=== PATIENT | female | born 1970 | race African-American/Black ===

== ENCOUNTER 2016-08-28 11:44 | Inpatient (IN) | payer OTHER ==
[2016-08-28 12:27] VITALS: BMI 20.5
--- NOTE | 2016-08-28 13:02 | HP ---
Admission ROS [facility] Chief Complaint: I was at detox at [facility] and now ready for rehab. Allergies/Adverse Reactions: Allergies Allergy/AdvReac Type Severity Reaction Status Date / Time No Known Allergies Allergy Verified 08/28/16 12:51 History of Present Illness: pt is a 46yr old female with a history of heroin dependence who was detoxed at [facility] a week ago is ready for rehab for treatment. Exam Limitations: No Limitations - Ebola screening Have you traveled outside of the country in the last 21 days: No Have you had contact with anyone from an Ebola affected area: No Have you been sick,other than usual withdrawal symptoms: No Do you have a fever: No - Review of Systems Constitutional: Chills, Diaphoresis, Loss of Appetite, Changes in sleep, Unintentional Wgt. Loss EENT: reports: Tearing, Nose Congestion Respiratory: reports: No Symptoms reported Cardiac: reports: No Symptoms Reported GI: reports: Poor Appetite, Poor Fluid Intake : reports: No Symptoms Reported Musculoskeletal: reports: Back Pain Integumentary: reports: No Symptoms Reported Neuro: reports: No Symptoms reported Endocrine: reports: No Symptoms Reported Hematology: reports: No Symptoms Reported Psychiatric: reports: Judgement Intact, Mood/Affect Appropiate, Orientated x3, Agitated, Anxious Other Systems: Reviewed and Negative Patient History - Patient Medical History Hx Anemia: No Hx Asthma: No Hx Chronic Obstructive Pulmonary Disease (COPD): No Hx Cancer: No Hx Cardiac Disorders: No Hx Congestive Heart Failure: No Hx Hypertension: No Hx Hypercholesterolemia: No Hx Pacemaker: No HX Cerebrovascular Accident: No Hx Seizures: No Hx Dementia: No Hx Diabetes: No Hx Gastrointestinal Disorders: No Hx Liver Disease: No Hx Genitourinary Disorders: No Hx Sexually Transmitted Disorders: No Hx Renal Disease (ESRD): No Hx Thyroid Disease: No Hx Human Immunodeficiency Virus (HIV): No (negative) Hx Hepatitis C: No (negative) Hx Depression: No Hx Suicide Attempt: No (denies) Hx Bipolar Disorder: No Hx Schizophrenia: No - Patient Surgical History Past Surgical History: No - PPD History Previous Implant?: Yes Documented Results: Negative w/o proof PPD to be Administered?: Yes - Reproductive History Patient is a Female of Child Bearing Age (11 -55 yrs old): Yes Last Menstrual Period: 08/22/16 Patient : No - Smoking Cessation Smoking history: Current every day smoker Have you smoked in the past 12 months: Yes Aproximately how many cigarettes per day: 7 Hx Chewing Tobacco Use: No Initiated information on smoking cessation: Yes 'Breaking Loose' booklet given: 08/28/16 - Substance & Tx. History Hx Alcohol Use: No Hx Substance Use: Yes Substance Use Type: Heroin Hx Substance Use Treatment: Yes - Substances Abused Heroin Route: Inhalation Frequency: Daily Amount used: 2 bundle Age of first use: 16 Date of Last Use: 08/21/16 Family Disease History - Family Disease History Family Disease History: Diabetes: Mother Admission Physical Exam [facility] - Vital Signs Vital Signs: Vital Signs - 24 hr 08/28/16 12:24 Temperature 99.3 F Pulse Rate 68 Respiratory 20 Rate Blood Pressure 129/80 - Physical General Appearance: Yes: Appropriately Dressed, Mild Distress, Thin, Tremorous, Irritable, Sweating, Anxious HEENTM: Yes: Hearing grossly Normal, Normal Voice Respiratory: Yes: Lungs Clear, Normal Breath Sounds, No Respiratory Distress Neck: Yes: No masses,lesions,Nodules Breast: Yes: Within Normal Limits Cardiology: Yes: Regular Rhythm, Regular Rate, S1, S2 Abdominal: Yes: Normal Bowel Sounds, Non Tender, Soft Genitourinary: Yes: Within Normal Limits Back: Yes: Normal Inspection Musculoskeletal: Yes: full range of Motion Extremities: Yes: Normal Capillary Refill Neurological: Yes: Fully Oriented, Alert, Normal Response Integumentary: Yes: Normal Color Lymphatic: Yes: Within Normal Limits - Diagnostic (1) Heroin abuse Current Visit: No Status: Chronic (2) Nicotine dependence Current Visit: Yes Status: Chronic Qualifiers: Nicotine product type: cigarettes Substance use status: uncomplicated Qualified Code(s): F17.210 - Nicotine dependence, cigarettes, uncomplicated Cleared for Admission [facility] - Detox or Rehab [facility] Level of Care: Medically Managed Claeared for Rehab Admission: Yes [facility] Breath Alcohol Content Breath Alcohol Content: 0 Urine Pregancy Test - Result Urine Test Results: Negative- NO Line Present Urine Drug Screen - Results Drug Screen Negative: No Urine Drug Screen Results: MTD-Methadone
[2016-08-28] MEDS ORDERED: MAGNESIUM HYDROX 2400MG/30ML ORAL SUSPENSION 30 ML CUP PO PRN (13:17)
[2016-08-28] MEDS ORDERED: MAG HYDROX/AL HYDROX/SIMETH 30 ML UNIT-DOSE CUP PO PRN (13:17)
[2016-08-28] MEDS ORDERED: LOPERAMIDE HCL 2 MG CAPSULE PO PRN (13:17)
[2016-08-28] MEDS ORDERED: hydrOXYzine PAMOATE 50 MG CAPSULE (FP) PO PRN (13:17)
[2016-08-28] MEDS ORDERED: MENTHOL/PHENOL 1 EACH UD MM PRN (13:17)
[2016-08-28] MEDS ORDERED: ACETAMINOPHEN 325 MG TABLET (FP) PO PRN (13:17)
[2016-08-28] MEDS ORDERED: P-EPHED 60MG/TRIPROLIDI 2.5MG TABLET PO PRN (13:17)
[2016-08-28] MEDS ORDERED: MAGNESIUM CITRATE 300 ML BOTTLE PO PRN (13:17)
--- NOTE | 2016-08-28 14:52 | HP ---
Psychiatrist Admission - Data Date of interview: 08/28/16 Admission source: [facility] Identifying data: This is the first admission to [address] [place] [address] for this 46 years old AA female Medical History: unremarkable Psychiatric History: Patient denies previous psychiatric history but reports sleeping difficulties on and off ,used to medicate herself with drugs to improve sleep condition. Physical/Sexual Abuse/Trauma History: not wiling to discuss at present. Vital Signs: Vital Signs - 24 hr 08/28/16 12:24 Temperature 99.3 F Pulse Rate 68 Respiratory 20 Rate Blood Pressure 129/80 Allergies/Adverse Reactions: Allergies Allergy/AdvReac Type Severity Reaction Status Date / Time No Known Allergies Allergy Verified 08/28/16 12:51 Date of last physical exam: 08/28/16 Concur with the findings of this exam: Yes - Substance Abuse/Tx History Hx Alcohol Use: Yes Hx Substance Use: Yes (reports using heroin since 16 years old,2 bundle daily) Substance Use Type: Heroin Hx Substance Use Treatment: Yes - Admission Criteria Previous failed treatment: Yes Poor recovery environment: Yes Comorbidities: Yes Lacks judgement: Yes Mental Status Exam - Mental Status Exam Alert and Oriented to: Time, Place, Person Cognitive Function: Grossly Intact Patient Appearance: Unkempt Mood: Sad Affect: Mood Congruent Patient Behavior: Cooperative Speech Pattern: Clear Voice Loudness: Normal Thought Process: Goal Oriented Thought Disorder: Not Present Hallucinations: Denies Suicidal Ideation: Denies Homicidal Ideation: Denies Insight/Judgement: Fair Sleep: Fair Appetite: Fair Muscle strength/Tone: Normal Gait/Station: Normal Psychiatric Findings - Problem List ([place] 1, 2,3) (1) Nicotine dependence Current Visit: Yes Status: Chronic Qualifiers: Nicotine product type: cigarettes Substance use status: uncomplicated Qualified Code(s): F17.210 - Nicotine dependence, cigarettes, uncomplicated (2) Heroin abuse Current Visit: Yes Status: Chronic - Initial Treatment Plan Initial Treatment Plan: TRazodone 50 mg po hs.Will monitor progress.
[2016-08-28] MEDS: CYCLOBENZAPRINE HCL 10 MG TABLET (FP) PO PRN (15:38)
[2016-08-28] MEDS ORDERED: TUBERCULIN PPD 5 TU/0.1ML VIAL ID ONE (16:15)
[2016-08-28 17:33] LABS: MCHC 32.1 g/dl (32.0-36.0); MEAN CELL VOLUME 87.2 fl (80-96); MEAN PLT VOLUME 10.3 fl (7.5-11.1); PLATELET COUNT 334 K/MM3 (134-434); RDW 16.4 % (11.6-15.6)
[2016-08-28 17:50] LABS: ALBUMIN 3.2 g/dl (3.4-5.0); ANION GAP 8 (8-16); CALCIUM 8.7 mg/dL (8.5-10.1); CO2 29 mmol/L (21-32); GLUCOSE,RANDOM 91 mg/dL (74-106); SGOT/AST 12 U/L (15-37); SGPT/ALT 19 U/L (12-78)
[2016-08-28 17:52] LABS: ALK PHOS 61 U/L (45-117); BILIRUBIN,TOTAL 0.2 mg/dL (0.2-1.0); CREATININE 0.7 mg/dL (0.55-1.02); TOT PROT 6.5 g/dl (6.4-8.2)
[2016-08-28] MEDS: RANITIDINE HCL 150 MG TABLET (FP) PO SCH (21:55)
[2016-08-28] MEDS: THIAMINE HCL 100 MG TABLET (FP) PO SCH (21:55)
[2016-08-28] MEDS: NAPROXEN 500 MG TABLET (FP) PO SCH (21:55)
[2016-08-28] MEDS: traZODone HCL 50 MG TABLET (FP) PO SCH (21:55)
[2016-08-28 23:36] LABS: URINE APPEARANCE CLEAR; URINE BILIRUBIN NEGATIVE (NEGATIVE); URINE BLOOD NEGATIVE (NEGATIVE); URINE COLOR YELLOW; URINE GLUCOSE (UA) NEGATIVE (NEGATIVE); URINE KETONE NEGATIVE (NEGATIVE); URINE LEUK ESTERASE NEGATIVE (NEGATIVE); URINE NITRITE NEGATIVE (NEGATIVE); URINE PROTEIN NEGATIVE (NEGATIVE); URINE UROBILINOGEN NEGATIVE E.U./dl (0.2-1.0)
[2016-08-29] MEDS: cloNIDine HCL 0.1 MG TABLET PO SCH (10:26)
[2016-08-29] MEDS: NAPROXEN 500 MG TABLET (FP) PO SCH ×2 (10:26→21:53)
[2016-08-29] MEDS: NICOTINE 14 MG/24 HOURS TOPICAL PATCH TD SCH (10:27)
[2016-08-29] MEDS: PRENATAL VITAMINS W/ FOLIC ACID TABLET (FP) PO SCH (10:27)
[2016-08-29] MEDS: RANITIDINE HCL 150 MG TABLET (FP) PO SCH ×2 (10:27→21:53)
[2016-08-29 11:53] LABS: HIV 1 & 2 AB NEGATIVE; HIV 1 AGp24 NEGATIVE
[2016-08-29] MEDS: CYCLOBENZAPRINE HCL 10 MG TABLET (FP) PO PRN (13:10)
[2016-08-29] MEDS: THIAMINE HCL 100 MG TABLET (FP) PO SCH (21:53)
[2016-08-29] MEDS: traZODone HCL 50 MG TABLET (FP) PO SCH (21:53)
[2016-08-30] MEDS: guaiFENesin/D-METHORPHAN HB 10 ML UNIT-DOSE CUPS PO PRN (08:57)
[2016-08-30] MEDS: cloNIDine HCL 0.1 MG TABLET PO SCH (10:54)
[2016-08-30] MEDS: NICOTINE 14 MG/24 HOURS TOPICAL PATCH TD SCH (10:54)
[2016-08-30] MEDS: PRENATAL VITAMINS W/ FOLIC ACID TABLET (FP) PO SCH (10:55)
[2016-08-30] MEDS: NAPROXEN 500 MG TABLET (FP) PO SCH ×2 (10:55→21:46)
[2016-08-30] MEDS: RANITIDINE HCL 150 MG TABLET (FP) PO SCH ×2 (10:55→21:47)
[2016-08-30] MEDS: traZODone HCL 50 MG TABLET (FP) PO SCH (21:46)
[2016-08-30] MEDS: THIAMINE HCL 100 MG TABLET (FP) PO SCH (21:47)
[2016-08-31] MEDS: guaiFENesin/D-METHORPHAN HB 10 ML UNIT-DOSE CUPS PO PRN (09:04)
[2016-08-31] MEDS: RANITIDINE HCL 150 MG TABLET (FP) PO SCH ×2 (09:05→21:43)
[2016-08-31] MEDS: cloNIDine HCL 0.1 MG TABLET PO SCH (09:05)
[2016-08-31] MEDS: NAPROXEN 500 MG TABLET (FP) PO SCH ×2 (09:05→21:43)
[2016-08-31] MEDS: PRENATAL VITAMINS W/ FOLIC ACID TABLET (FP) PO SCH (09:05)
[2016-08-31] MEDS: NICOTINE 14 MG/24 HOURS TOPICAL PATCH TD SCH (09:06)
[2016-08-31] MEDS: traZODone HCL 50 MG TABLET (FP) PO SCH (21:43)
[2016-08-31] MEDS: THIAMINE HCL 100 MG TABLET (FP) PO SCH (21:43)
[2016-09-01] MEDS: RANITIDINE HCL 150 MG TABLET (FP) PO SCH ×2 (09:21→21:51)
[2016-09-01] MEDS: cloNIDine HCL 0.1 MG TABLET PO SCH (09:21)
[2016-09-01] MEDS: PRENATAL VITAMINS W/ FOLIC ACID TABLET (FP) PO SCH (09:21)
[2016-09-01] MEDS: NAPROXEN 500 MG TABLET (FP) PO SCH ×2 (09:21→21:51)
[2016-09-01] MEDS: NICOTINE 14 MG/24 HOURS TOPICAL PATCH TD SCH (09:22)
--- NOTE | 2016-09-01 16:53 | PN ---
[id number] [id number] Date of Session: 09/01/16 Chief Complaint:: "Gerard still having sleeping difficulties." HPI: Patient addressed Opioid dependence comorbid with Substance induced mood disorder. ROS: unremarkable Current Medications: Active Medications Generic Name Dose Route Start Last Admin Trade Name Freq PRN Reason Stop Dose Admin Acetaminophen 650 mg 08/28/16 13:17 Tylenol - PO Q4H PRN PAIN Al Hydroxide/Mg Hydroxide 30 ml 08/28/16 13:17 Mylanta Oral Suspension - PO Q6H PRN DYSPEPSIA Clonidine 0.1 mg 08/29/16 10:00 09/01/16 09:21 Catapres - PO 0.1 mg DAILY RAPHAEL Administration Cyclobenzaprine HCl 10 mg 08/28/16 13:19 08/29/16 13:10 Flexeril - PO 10 mg TID PRN Administration MUSCLE SPASMS Diphenhydramine HCl 50 mg 08/28/16 13:17 Benadryl - PO HSMR1 PRN INSOMNIA Eucalyptus/Menthol/Phenol/Sorbitol 1 each 08/28/16 13:17 Cepastat Lozenge - MM Q4H PRN SORE THROAT Guaifenesin 10 ml 08/28/16 13:17 08/31/16 09:04 Robitussin Dm - PO 10 ml Q6H PRN Administration COUGH Hydroxyzine Pamoate 50 mg 08/28/16 13:17 09/01/16 02:23 Vistaril - PO 50 mg Q4H PRN Administration AGITATION Loperamide HCl 4 mg 08/28/16 13:17 Imodium - PO Q6H PRN DIARRHEA Magnesium Citrate 300 ml 08/28/16 13:17 Citroma - PO Q48H PRN CONSTIPATION Magnesium Hydroxide 30 ml 08/28/16 13:17 Milk Of Magnesia - PO DAILY PRN CONSTIPATION Naproxen 500 mg 08/28/16 22:00 09/01/16 09:21 Naprosyn - PO 500 mg BID RAPHAEL Administration Nicotine 14 mg 08/29/16 10:00 09/01/16 09:22 Nicoderm Patch - TD Not Given DAILY RAPHAEL Nicotine Polacrilex 4 mg 08/28/16 13:17 Nicorette Gum - BC Q2H PRN NICOTINE REPLACEMENT RX Multivit/Folic Acid/Iron 1 tab 08/29/16 10:00 09/01/16 09:21 Vitamins (Sjr) - PO 1 tab DAILY RAPHAEL Administration Pseudoephedrine/Triprolidine 1 combo 08/28/16 13:17 Actifed - PO TID PRN NASAL CONGESTION Ranitidine HCl 150 mg 08/28/16 22:00 09/01/16 09:21 Zantac - PO 150 mg BID RAPHAEL Administration Thiamine HCl 100 mg 08/28/16 22:00 08/31/16 21:43 Vitamin B1 - PO Not Given HS RAPHAEL Trazodone HCl 100 mg 09/01/16 22:00 Desyrel - PO HS RAPHAEL Current Side Effect: No Lab tests ordered: No Lab tests reviewed: Yes Provider note:: Patient was evaluated today.Chart has been revuewed,medications, treatment plan has been discussed with the patinet.Properties of Trazodone has been discussed as well including side effects,benefits adn dose adjustment.Trazodone 50 mg po hs will be adjusted to 100 mg po hs. Psychotherapy has been provided focusing on coping skills utilization, relaxation techniques has been discussed.Emotional support provided. Total face to face time:: 30 Mental Status Exam - Mental Status Exam Alert and Oriented to: Time, Place, Person Cognitive Function: Grossly Intact Patient Appearance: Well Groomed Mood: Anxious Affect: Labile Patient Behavior: Cooperative Speech Pattern: Clear Voice Loudness: Normal Thought Process: Goal Oriented Thought Disorder: Not Present Hallucinations: Denies Suicidal Ideation: Denies Homicidal Ideation: Denies Insight/Judgement: Fair Sleep: Difficulty falling asleep Appetite: Good Muscle strength/Tone: Normal Gait/Station: Normal Psychiatric Treatment Plan - Problem List (1) Nicotine dependence Current Visit: Yes Qualifiers: Nicotine product type: cigarettes Substance use status: uncomplicated Qualified Code(s): F17.210 - Nicotine dependence, cigarettes, uncomplicated (2) Substance-induced sleep disorder Current Visit: Yes (3) Opioid dependence Current Visit: Yes
[2016-09-01] MEDS: traZODone HCL 100 MG TABLET (FP) PO SCH (21:51)
[2016-09-01] MEDS: diphenhydrAMINE HCL 50 MG CAPSULE PO PRN (21:52)
[2016-09-01] MEDS: THIAMINE HCL 100 MG TABLET (FP) PO SCH (21:53)
[2016-09-02] MEDS: RANITIDINE HCL 150 MG TABLET (FP) PO SCH ×2 (10:07→21:18)
[2016-09-02] MEDS: cloNIDine HCL 0.1 MG TABLET PO SCH (10:07)
[2016-09-02] MEDS: NAPROXEN 500 MG TABLET (FP) PO SCH ×2 (10:07→21:18)
[2016-09-02] MEDS: PRENATAL VITAMINS W/ FOLIC ACID TABLET (FP) PO SCH (10:07)
[2016-09-02] MEDS: NICOTINE 14 MG/24 HOURS TOPICAL PATCH TD SCH (10:08)
[2016-09-02] MEDS: guaiFENesin/D-METHORPHAN HB 10 ML UNIT-DOSE CUPS PO PRN (11:43)
[2016-09-02] MEDS: traZODone HCL 100 MG TABLET (FP) PO SCH (21:17)
[2016-09-02] MEDS: diphenhydrAMINE HCL 50 MG CAPSULE PO PRN (21:17)
[2016-09-02] MEDS: THIAMINE HCL 100 MG TABLET (FP) PO SCH (21:18)
[2016-09-03] MEDS: NICOTINE 14 MG/24 HOURS TOPICAL PATCH TD SCH (10:31)
[2016-09-03] MEDS: NAPROXEN 500 MG TABLET (FP) PO SCH ×2 (10:31→21:23)
[2016-09-03] MEDS: PRENATAL VITAMINS W/ FOLIC ACID TABLET (FP) PO SCH (10:31)
[2016-09-03] MEDS: cloNIDine HCL 0.1 MG TABLET PO SCH (10:31)
[2016-09-03] MEDS: RANITIDINE HCL 150 MG TABLET (FP) PO SCH ×2 (10:32→21:24)
[2016-09-03] MEDS: diphenhydrAMINE HCL 50 MG CAPSULE PO PRN (21:23)
[2016-09-03] MEDS: THIAMINE HCL 100 MG TABLET (FP) PO SCH (21:23)
[2016-09-03] MEDS: traZODone HCL 100 MG TABLET (FP) PO SCH (21:23)
[2016-09-04] MEDS: NAPROXEN 500 MG TABLET (FP) PO SCH ×2 (09:58→21:13)
[2016-09-04] MEDS: RANITIDINE HCL 150 MG TABLET (FP) PO SCH ×2 (09:58→21:14)
[2016-09-04] MEDS: cloNIDine HCL 0.1 MG TABLET PO SCH (09:58)
[2016-09-04] MEDS: PRENATAL VITAMINS W/ FOLIC ACID TABLET (FP) PO SCH (09:59)
[2016-09-04] MEDS: NICOTINE 14 MG/24 HOURS TOPICAL PATCH TD SCH (09:59)
--- NOTE | 2016-09-04 16:06 | PN ---
Psychiatric Progress Note Vital Signs: Vital Signs Period Temp Pulse Resp BP Sys/Nugent Pulse Ox Last 24 Hr 98.7 F 63-63 16-18 111-141/74-92 Date of Session: 09/04/16 Chief Complaint:: Follow up visit HPI: Asked to see this patient for complaint of insomnia.Rehabilitation treatment for heroin dependence :in progress.Hospital course is uneventful except for refractory insomnia. ROS: Unremarkable. Current Medications: Active Medications Generic Name Dose Route Start Last Admin Trade Name Freq PRN Reason Stop Dose Admin Acetaminophen 650 mg 08/28/16 13:17 Tylenol - PO Q4H PRN PAIN Al Hydroxide/Mg Hydroxide 30 ml 08/28/16 13:17 Mylanta Oral Suspension - PO Q6H PRN DYSPEPSIA Clonidine 0.1 mg 08/29/16 10:00 09/04/16 09:58 Catapres - PO 0.1 mg DAILY RAPHAEL Administration Cyclobenzaprine HCl 10 mg 08/28/16 13:19 08/29/16 13:10 Flexeril - PO 10 mg TID PRN Administration MUSCLE SPASMS Diphenhydramine HCl 50 mg 08/28/16 13:17 09/03/16 21:23 Benadryl - PO 50 mg HSMR1 PRN Administration INSOMNIA Eucalyptus/Menthol/Phenol/Sorbitol 1 each 08/28/16 13:17 Cepastat Lozenge - MM Q4H PRN SORE THROAT Guaifenesin 10 ml 08/28/16 13:17 09/02/16 11:43 Robitussin Dm - PO 10 ml Q6H PRN Administration COUGH Hydroxyzine Pamoate 50 mg 08/28/16 13:17 09/01/16 02:23 Vistaril - PO 50 mg Q4H PRN Administration AGITATION Loperamide HCl 4 mg 08/28/16 13:17 Imodium - PO Q6H PRN DIARRHEA Magnesium Citrate 300 ml 08/28/16 13:17 Citroma - PO Q48H PRN CONSTIPATION Magnesium Hydroxide 30 ml 08/28/16 13:17 Milk Of Magnesia - PO DAILY PRN CONSTIPATION Naproxen 500 mg 08/28/16 22:00 09/04/16 09:58 Naprosyn - PO 500 mg BID RAPHAEL Administration Nicotine 14 mg 08/29/16 10:00 12/26/16 09:59 Nicoderm Patch - TD Not Given DAILY RAPHAEL Nicotine Polacrilex 4 mg 08/28/16 13:17 Nicorette Gum - BC Q2H PRN NICOTINE REPLACEMENT RX Multivit/Folic Acid/Iron 1 tab 08/29/16 10:00 09/04/16 09:59 Vitamins (Sjr) - PO 1 tab DAILY RAPHAEL Administration Pseudoephedrine/Triprolidine 1 combo 08/28/16 13:17 Actifed - PO TID PRN NASAL CONGESTION Quetiapine Fumarate 50 mg 09/04/16 22:00 Seroquel - PO HS RAPHAEL Ranitidine HCl 150 mg 08/28/16 22:00 09/04/16 09:58 Zantac - PO 150 mg BID RAPHAEL Administration Thiamine HCl 100 mg 08/28/16 22:00 09/03/16 21:23 Vitamin B1 - PO Not Given HS RAPHAEL Trazodone HCl 100 mg 09/01/16 22:00 09/03/16 21:23 Desyrel - PO 100 mg HS RAPHAEL Administration Medication(s) Change(s): Patient reports that she " did well " ,in the past,on seroquel.Ms Boateng insists on having that medication added to this regimen.Seroquel 50 mg po hs.Ordered.Side effects/benefits of seroquel discussed with patient.She agrees with this plan. Current Side Effect: No Lab tests ordered: No Lab tests reviewed: Yes Provider note:: Met with patient.Complaint validated.Beneficial effects of sleep hygiene are discussed with patient.She requested seroquel.Patient is made aware of side effects/benefits.Unremarkable mental status. Total face to face time:: 30 Mental Status Exam - Mental Status Exam Alert and Oriented to: Time, Place, Person Cognitive Function: Good Patient Appearance: Well Groomed Mood: Nervous, Anxious, Hopeful Affect: Normal Range Patient Behavior: Fatigued, Appropriate, Cooperative Speech Pattern: Clear Voice Loudness: Normal Thought Process: Goal Oriented Thought Disorder: Not Present Hallucinations: Denies Suicidal Ideation: Denies Homicidal Ideation: Denies Insight/Judgement: Fair Sleep: Poorly, Difficulty falling asleep Appetite: Good Muscle strength/Tone: Normal Gait/Station: Normal Psychiatric Treatment Plan - Problem List (1) Nicotine dependence Current Visit: Yes Qualifiers: Nicotine product type: cigarettes Substance use status: uncomplicated Qualified Code(s): F17.210 - Nicotine dependence, cigarettes, uncomplicated (2) Insomnia Current Visit: Yes Qualifiers: Insomnia type: unspecified Qualified Code(s): G47.00 - Insomnia, unspecified (3) Heroin abuse Current Visit: Yes
[2016-09-04] MEDS: QUEtiapine FUMARATE 50 MG TABLET PO SCH (21:13)
[2016-09-04] MEDS: traZODone HCL 100 MG TABLET (FP) PO SCH (21:13)
[2016-09-04] MEDS: THIAMINE HCL 100 MG TABLET (FP) PO SCH (21:14)
[2016-09-05] MEDS: cloNIDine HCL 0.1 MG TABLET PO SCH (10:43)
[2016-09-05] MEDS: NICOTINE 14 MG/24 HOURS TOPICAL PATCH TD SCH (10:43)
[2016-09-05] MEDS: PRENATAL VITAMINS W/ FOLIC ACID TABLET (FP) PO SCH (10:43)
[2016-09-05] MEDS: RANITIDINE HCL 150 MG TABLET (FP) PO SCH ×2 (10:43→21:35)
[2016-09-05] MEDS: NAPROXEN 500 MG TABLET (FP) PO SCH ×2 (10:43→21:35)
[2016-09-05] MEDS: traZODone HCL 100 MG TABLET (FP) PO SCH (21:34)
[2016-09-05] MEDS: QUEtiapine FUMARATE 50 MG TABLET PO SCH (21:34)
[2016-09-05] MEDS: THIAMINE HCL 100 MG TABLET (FP) PO SCH (21:35)
[2016-09-05] MEDS: diphenhydrAMINE HCL 50 MG CAPSULE PO PRN (23:51)
[2016-09-06] MEDS: cloNIDine HCL 0.1 MG TABLET PO SCH (10:19)
[2016-09-06] MEDS: NAPROXEN 500 MG TABLET (FP) PO SCH ×2 (10:19→21:15)
[2016-09-06] MEDS: PRENATAL VITAMINS W/ FOLIC ACID TABLET (FP) PO SCH (10:20)
[2016-09-06] MEDS: RANITIDINE HCL 150 MG TABLET (FP) PO SCH ×2 (10:20→21:15)
[2016-09-06] MEDS: NICOTINE 14 MG/24 HOURS TOPICAL PATCH TD SCH (10:20)
[2016-09-06] MEDS: THIAMINE HCL 100 MG TABLET (FP) PO SCH (21:14)
[2016-09-06] MEDS: diphenhydrAMINE HCL 50 MG CAPSULE PO PRN (21:15)
[2016-09-06] MEDS: QUEtiapine FUMARATE 50 MG TABLET PO SCH (21:15)
[2016-09-06] MEDS: traZODone HCL 100 MG TABLET (FP) PO SCH (21:15)
[2016-09-07] MEDS: NAPROXEN 500 MG TABLET (FP) PO SCH ×2 (10:03→22:09)
[2016-09-07] MEDS: RANITIDINE HCL 150 MG TABLET (FP) PO SCH ×2 (10:03→22:09)
[2016-09-07] MEDS: NICOTINE 14 MG/24 HOURS TOPICAL PATCH TD SCH (10:03)
[2016-09-07] MEDS: PRENATAL VITAMINS W/ FOLIC ACID TABLET (FP) PO SCH (10:03)
[2016-09-07] MEDS: cloNIDine HCL 0.1 MG TABLET PO SCH (10:03)
[2016-09-07] MEDS: QUEtiapine FUMARATE 50 MG TABLET PO SCH (21:21)
[2016-09-07] MEDS: diphenhydrAMINE HCL 50 MG CAPSULE PO PRN (21:21)
[2016-09-07] MEDS: NICOTINE POLACRILEX 4 MG GUM BC PRN (21:21)
[2016-09-07] MEDS: traZODone HCL 100 MG TABLET (FP) PO SCH (21:21)
[2016-09-07] MEDS: THIAMINE HCL 100 MG TABLET (FP) PO SCH (22:09)
[2016-09-08] MEDS: RANITIDINE HCL 150 MG TABLET (FP) PO SCH ×2 (10:31→21:28)
[2016-09-08] MEDS: PRENATAL VITAMINS W/ FOLIC ACID TABLET (FP) PO SCH (10:31)
[2016-09-08] MEDS: NAPROXEN 500 MG TABLET (FP) PO SCH ×2 (10:31→21:28)
[2016-09-08] MEDS: cloNIDine HCL 0.1 MG TABLET PO SCH (10:31)
[2016-09-08] MEDS: NICOTINE POLACRILEX 4 MG GUM BC PRN (10:32)
[2016-09-08] MEDS: NICOTINE 14 MG/24 HOURS TOPICAL PATCH TD SCH (10:32)
[2016-09-08] MEDS: diphenhydrAMINE HCL 50 MG CAPSULE PO PRN (21:27)
[2016-09-08] MEDS: THIAMINE HCL 100 MG TABLET (FP) PO SCH (21:27)
[2016-09-08] MEDS: traZODone HCL 100 MG TABLET (FP) PO SCH (21:27)
[2016-09-08] MEDS: QUEtiapine FUMARATE 50 MG TABLET PO SCH (21:28)
[2016-09-09] MEDS: PRENATAL VITAMINS W/ FOLIC ACID TABLET (FP) PO SCH (09:51)
[2016-09-09] MEDS: NAPROXEN 500 MG TABLET (FP) PO SCH ×2 (09:51→21:17)
[2016-09-09] MEDS: NICOTINE 14 MG/24 HOURS TOPICAL PATCH TD SCH (09:51)
[2016-09-09] MEDS: cloNIDine HCL 0.1 MG TABLET PO SCH (09:51)
[2016-09-09] MEDS: RANITIDINE HCL 150 MG TABLET (FP) PO SCH ×2 (09:52→21:17)
[2016-09-09] MEDS: QUEtiapine FUMARATE 50 MG TABLET PO SCH (21:16)
[2016-09-09] MEDS: traZODone HCL 100 MG TABLET (FP) PO SCH (21:16)
[2016-09-09] MEDS: THIAMINE HCL 100 MG TABLET (FP) PO SCH (21:16)
[2016-09-09] MEDS: diphenhydrAMINE HCL 50 MG CAPSULE PO PRN (22:16)
[2016-09-10] MEDS: cloNIDine HCL 0.1 MG TABLET PO SCH (10:07)
[2016-09-10] MEDS: NICOTINE 14 MG/24 HOURS TOPICAL PATCH TD SCH (10:07)
[2016-09-10] MEDS: PRENATAL VITAMINS W/ FOLIC ACID TABLET (FP) PO SCH (10:08)
[2016-09-10] MEDS: RANITIDINE HCL 150 MG TABLET (FP) PO SCH ×2 (10:08→21:20)
[2016-09-10] MEDS: NAPROXEN 500 MG TABLET (FP) PO SCH ×2 (10:08→21:20)
[2016-09-10] MEDS: NICOTINE POLACRILEX 4 MG GUM BC PRN (10:08)
[2016-09-10] MEDS: traZODone HCL 100 MG TABLET (FP) PO SCH (21:19)
[2016-09-10] MEDS: QUEtiapine FUMARATE 50 MG TABLET PO SCH (21:19)
[2016-09-10] MEDS: THIAMINE HCL 100 MG TABLET (FP) PO SCH (21:19)
[2016-09-10] MEDS: diphenhydrAMINE HCL 50 MG CAPSULE PO PRN (22:15)
[2016-09-11] MEDS: NAPROXEN 500 MG TABLET (FP) PO SCH ×2 (10:17→21:26)
[2016-09-11] MEDS: PRENATAL VITAMINS W/ FOLIC ACID TABLET (FP) PO SCH (10:17)
[2016-09-11] MEDS: NICOTINE 14 MG/24 HOURS TOPICAL PATCH TD SCH (10:17)
[2016-09-11] MEDS: RANITIDINE HCL 150 MG TABLET (FP) PO SCH ×2 (10:17→21:27)
[2016-09-11] MEDS: cloNIDine HCL 0.1 MG TABLET PO SCH (10:17)
[2016-09-11] MEDS: traZODone HCL 100 MG TABLET (FP) PO SCH (21:25)
[2016-09-11] MEDS: THIAMINE HCL 100 MG TABLET (FP) PO SCH (21:25)
[2016-09-11] MEDS: QUEtiapine FUMARATE 50 MG TABLET PO SCH (21:25)
[2016-09-11] MEDS: diphenhydrAMINE HCL 50 MG CAPSULE PO PRN (21:26)
[2016-09-12] MEDS: NICOTINE 14 MG/24 HOURS TOPICAL PATCH TD SCH (10:43)
[2016-09-12] MEDS: RANITIDINE HCL 150 MG TABLET (FP) PO SCH ×2 (10:43→21:29)
[2016-09-12] MEDS: NAPROXEN 500 MG TABLET (FP) PO SCH ×2 (10:43→21:27)
[2016-09-12] MEDS: PRENATAL VITAMINS W/ FOLIC ACID TABLET (FP) PO SCH (10:43)
[2016-09-12] MEDS: cloNIDine HCL 0.1 MG TABLET PO SCH (10:43)
[2016-09-12] MEDS: NICOTINE POLACRILEX 4 MG GUM BC PRN (10:44)
[2016-09-12] MEDS ORDERED: MINERAL OIL/PETROLAT/WATER TOPICAL CREAM 454 GM JAR TP PRN (15:05)
[2016-09-12] MEDS: QUEtiapine FUMARATE 50 MG TABLET PO SCH (21:27)
[2016-09-12] MEDS: traZODone HCL 100 MG TABLET (FP) PO SCH (21:27)
[2016-09-12] MEDS: THIAMINE HCL 100 MG TABLET (FP) PO SCH (21:27)
[2016-09-12] MEDS: diphenhydrAMINE HCL 50 MG CAPSULE PO PRN (21:27)
[2016-09-12] MEDS: amLODIPine BESYLATE 5 MG TABLET (FP) PO SCH (21:28)
[2016-09-13] MEDS: PRENATAL VITAMINS W/ FOLIC ACID TABLET (FP) PO SCH (10:14)
[2016-09-13] MEDS: amLODIPine BESYLATE 5 MG TABLET (FP) PO SCH ×2 (10:15→21:15)
[2016-09-13] MEDS: RANITIDINE HCL 150 MG TABLET (FP) PO SCH ×2 (10:15→21:15)
[2016-09-13] MEDS: NAPROXEN 500 MG TABLET (FP) PO SCH ×2 (10:15→21:15)
[2016-09-13] MEDS: NICOTINE 14 MG/24 HOURS TOPICAL PATCH TD SCH (10:16)
[2016-09-13] MEDS: NICOTINE POLACRILEX 4 MG GUM BC PRN (20:55)
[2016-09-13] MEDS: traZODone HCL 100 MG TABLET (FP) PO SCH (21:15)
[2016-09-13] MEDS: QUEtiapine FUMARATE 50 MG TABLET PO SCH (21:15)
[2016-09-13] MEDS: diphenhydrAMINE HCL 50 MG CAPSULE PO PRN ×2 (21:15→22:50)
[2016-09-13] MEDS: THIAMINE HCL 100 MG TABLET (FP) PO SCH (21:15)
[2016-09-14] MEDS: PRENATAL VITAMINS W/ FOLIC ACID TABLET (FP) PO SCH (10:41)
[2016-09-14] MEDS: amLODIPine BESYLATE 5 MG TABLET (FP) PO SCH ×2 (10:41→21:40)
[2016-09-14] MEDS: NAPROXEN 500 MG TABLET (FP) PO SCH ×2 (10:41→21:40)
[2016-09-14] MEDS: RANITIDINE HCL 150 MG TABLET (FP) PO SCH ×2 (10:41→21:40)
[2016-09-14] MEDS: NICOTINE 14 MG/24 HOURS TOPICAL PATCH TD SCH (10:42)
[2016-09-14] MEDS: QUEtiapine FUMARATE 50 MG TABLET PO SCH (21:38)
[2016-09-14] MEDS: THIAMINE HCL 100 MG TABLET (FP) PO SCH (21:40)
[2016-09-14] MEDS: diphenhydrAMINE HCL 50 MG CAPSULE PO PRN (21:42)
[2016-09-14] MEDS: traZODone HCL 100 MG TABLET (FP) PO SCH (21:42)
[2016-09-15] MEDS: NICOTINE 14 MG/24 HOURS TOPICAL PATCH TD SCH (10:12)
[2016-09-15] MEDS: NAPROXEN 500 MG TABLET (FP) PO SCH ×2 (10:13→21:22)
[2016-09-15] MEDS: PRENATAL VITAMINS W/ FOLIC ACID TABLET (FP) PO SCH (10:13)
[2016-09-15] MEDS: RANITIDINE HCL 150 MG TABLET (FP) PO SCH ×2 (10:13→21:22)
[2016-09-15] MEDS: amLODIPine BESYLATE 5 MG TABLET (FP) PO SCH ×2 (10:13→21:21)
[2016-09-15] MEDS: traZODone HCL 100 MG TABLET (FP) PO SCH (21:21)
[2016-09-15] MEDS: QUEtiapine FUMARATE 100 MG TABLET (FP) PO SCH (21:21)
[2016-09-15] MEDS: THIAMINE HCL 100 MG TABLET (FP) PO SCH (21:21)
[2016-09-15] MEDS: diphenhydrAMINE HCL 50 MG CAPSULE PO PRN (22:17)
[2016-09-16] MEDS: PRENATAL VITAMINS W/ FOLIC ACID TABLET (FP) PO SCH (10:14)
[2016-09-16] MEDS: amLODIPine BESYLATE 5 MG TABLET (FP) PO SCH ×2 (10:14→21:36)
[2016-09-16] MEDS: NAPROXEN 500 MG TABLET (FP) PO SCH ×2 (10:15→21:37)
[2016-09-16] MEDS: NICOTINE 14 MG/24 HOURS TOPICAL PATCH TD SCH (10:15)
[2016-09-16] MEDS: RANITIDINE HCL 150 MG TABLET (FP) PO SCH ×2 (10:15→21:36)
[2016-09-16] MEDS: NICOTINE POLACRILEX 4 MG GUM BC PRN (12:34)
[2016-09-16] MEDS: THIAMINE HCL 100 MG TABLET (FP) PO SCH (21:36)
[2016-09-16] MEDS: diphenhydrAMINE HCL 50 MG CAPSULE PO PRN (21:36)
[2016-09-16] MEDS: traZODone HCL 100 MG TABLET (FP) PO SCH (21:37)
[2016-09-16] MEDS: QUEtiapine FUMARATE 100 MG TABLET (FP) PO SCH (21:37)
[2016-09-17] MEDS: PRENATAL VITAMINS W/ FOLIC ACID TABLET (FP) PO SCH (10:15)
[2016-09-17] MEDS: RANITIDINE HCL 150 MG TABLET (FP) PO SCH ×2 (10:15→21:26)
[2016-09-17] MEDS: NAPROXEN 500 MG TABLET (FP) PO SCH ×2 (10:15→21:25)
[2016-09-17] MEDS: amLODIPine BESYLATE 5 MG TABLET (FP) PO SCH ×2 (10:15→21:24)
[2016-09-17] MEDS: NICOTINE POLACRILEX 4 MG GUM BC PRN (10:16)
[2016-09-17] MEDS: NICOTINE 14 MG/24 HOURS TOPICAL PATCH TD SCH (10:16)
[2016-09-17] MEDS: traZODone HCL 100 MG TABLET (FP) PO SCH (21:24)
[2016-09-17] MEDS: diphenhydrAMINE HCL 50 MG CAPSULE PO PRN (21:24)
[2016-09-17] MEDS: QUEtiapine FUMARATE 100 MG TABLET (FP) PO SCH (21:24)
[2016-09-17] MEDS: THIAMINE HCL 100 MG TABLET (FP) PO SCH (21:26)
[2016-09-18 06:44] VITALS: BP 131/82; PULSE 80; TEMP 97.6
--- NOTE | 2016-09-18 08:48 | PN ---
Psychiatric Progress Note Vital Signs: Vital Signs Period Temp Pulse Resp BP Sys/Nugent Pulse Ox Last 24 Hr 97.6 F 77-85 16-18 130-147/71-84 Date of Session: 09/18/16 Chief Complaint:: Discharge visit HPI: Patient addressed Opioid dependence comorbid with Substance inuced mood disorder. ROS: unremarkable Current Medications: Active Medications Generic Name Dose Route Start Last Admin Trade Name Freq PRN Reason Stop Dose Admin Acetaminophen 650 mg 08/28/16 13:17 Tylenol - PO Q4H PRN PAIN Al Hydroxide/Mg Hydroxide 30 ml 08/28/16 13:17 Mylanta Oral Suspension - PO Q6H PRN DYSPEPSIA Amlodipine Besylate 5 mg 09/12/16 22:00 09/17/16 21:24 Norvasc - PO 5 mg BID RAPHAEL Administration Cyclobenzaprine HCl 10 mg 08/28/16 13:19 08/29/16 13:10 Flexeril - PO 10 mg TID PRN Administration MUSCLE SPASMS Diphenhydramine HCl 50 mg 08/28/16 13:17 09/17/16 21:24 Benadryl - PO 50 mg HSMR1 PRN Administration INSOMNIA Eucalyptus/Menthol/Phenol/Sorbitol 1 each 08/28/16 13:17 Cepastat Lozenge - MM Q4H PRN SORE THROAT Guaifenesin 10 ml 08/28/16 13:17 09/02/16 11:43 Robitussin Dm - PO 10 ml Q6H PRN Administration COUGH Hydroxyzine Pamoate 50 mg 08/28/16 13:17 09/01/16 02:23 Vistaril - PO 50 mg Q4H PRN Administration AGITATION Loperamide HCl 4 mg 08/28/16 13:17 Imodium - PO Q6H PRN DIARRHEA Magnesium Citrate 300 ml 08/28/16 13:17 Citroma - PO Q48H PRN CONSTIPATION Magnesium Hydroxide 30 ml 08/28/16 13:17 Milk Of Magnesia - PO DAILY PRN CONSTIPATION Multi-Ingredient Lotion 1 applic 09/12/16 15:05 09/16/16 11:34 Eucerin (Large Jar) - TP 1 applic BID PRN Administration DRY SKIN Naproxen 500 mg 08/28/16 22:00 09/17/16 21:25 Naprosyn - PO Not Given BID RAPHAEL Nicotine 14 mg 08/29/16 10:00 09/17/16 10:16 Nicoderm Patch - TD Not Given DAILY RAPHAEL Nicotine Polacrilex 4 mg 08/28/16 13:17 09/17/16 10:16 Nicorette Gum - BC 4 mg Q2H PRN Administration NICOTINE REPLACEMENT RX Multivit/Folic Acid/Iron 1 tab 08/29/16 10:00 09/17/16 10:15 Vitamins (Sjr) - PO 1 tab DAILY RAPHAEL Administration Pseudoephedrine/Triprolidine 1 combo 08/28/16 13:17 Actifed - PO TID PRN NASAL CONGESTION Quetiapine Fumarate 100 mg 09/15/16 22:00 09/17/16 21:24 Seroquel - PO 100 mg HS RAPHAEL Administration Ranitidine HCl 150 mg 08/28/16 22:00 09/17/16 21:26 Zantac - PO Not Given BID RAPHAEL Thiamine HCl 100 mg 08/28/16 22:00 09/17/16 21:26 Vitamin B1 - PO Not Given HS RAPHAEL Trazodone HCl 100 mg 09/01/16 22:00 09/17/16 21:24 Desyrel - PO 100 mg HS RAPHAEL Administration Current Side Effect: No Lab tests ordered: No Lab tests reviewed: Yes Provider note:: PAtient completed this program today.She has met her treatment goals and will continue to address her issues on outpatient [facility]asis at [facility].PAtient continues to find that current medications; Seroquel 100 mg po hs and Trazodone 100 mg po hs help to reduce her anxiety and sleeping difficulties .Scripts for 30 dys provided. Theraspy provided focusing on relapse prevention.Coping skills and support system utilization to maintin recovery has been discussed with the patient .Patient is stable for discharge today. Total face to face time:: 30 Mental Status Exam - Mental Status Exam Alert and Oriented to: Time, Place, Person Cognitive Function: Grossly Intact Patient Appearance: Well Groomed Mood: Hopeful, Euthymic Affect: Mood Congruent Patient Behavior: Cooperative Speech Pattern: Clear Voice Loudness: Normal Thought Process: Goal Oriented Thought Disorder: Not Present Hallucinations: Denies Suicidal Ideation: Denies Homicidal Ideation: Denies Insight/Judgement: Fair Sleep: Difficulty falling asleep Appetite: Fair Muscle strength/Tone: Normal Gait/Station: Normal Psychiatric Treatment Plan - Problem List (1) Nicotine dependence Qualifiers: Nicotine product type: cigarettes Substance use status: uncomplicated Qualified Code(s): F17.210 - Nicotine dependence, cigarettes, uncomplicated
[2016-09-18] MEDS: NAPROXEN 500 MG TABLET (FP) PO SCH (09:02)
[2016-09-18] MEDS: RANITIDINE HCL 150 MG TABLET (FP) PO SCH (09:03)
[2016-09-18] MEDS: amLODIPine BESYLATE 5 MG TABLET (FP) PO SCH (09:03)
[2016-09-18] MEDS: PRENATAL VITAMINS W/ FOLIC ACID TABLET (FP) PO SCH (09:03)
[2016-09-18] MEDS: NICOTINE 14 MG/24 HOURS TOPICAL PATCH TD SCH (09:03)
== END 2016-09-18 09:12 | disposition home or self-care (01) | DRG 772 ==
LOC: YASAS 11:44 → Y3E 14:09
PROVIDERS: ADMIT Psychiatry & Neurology Psychiatry; ATTEND Psychiatry & Neurology Psychiatry
PROC: HZ42ZZZ Group Counseling for Substance Abuse Treatment, Cognitive-Behavioral (ICD-10-PCS; principal; 2016-08-28)
DX: F11.20 Opioid dependence, uncomplicated (principal); F17.210 Nicotine dependence, cigarettes, uncomplicated; F19.282 Other psychoactive substance dependence with psychoactive substance-induced sleep disorder; G47.00 Insomnia, unspecified; Z59.0 Homelessness
CPT/HCPCS: 36415; 80053; 81003; 85027; 86593; 87389; 93005; 93010